=== PATIENT | male | born 1965 | race Caucasian/White ===

== ENCOUNTER 2018-01-26 20:45 | Emergency (ER) | payer OTHER, SELFPAY ==
[2018-01-26 20:46] VITALS: BP 119/76; PULSE 68; RESP 15; TEMP 36.7; BMI 25.7
--- NOTE | 2018-01-26 21:22 | ED.VISSUMM ---
- ER Visit Summary Date of Service: 01/26/18 Chief Complaint: Tick on face History of Present Illness: The patient is a 52 M who states he is out of the leon for the past 2 days. He noticed a tick along his right jawline in his aguilar tonight. His was unable to remove the entire tick. Physical Examination: Vital signs unremarkable. Head neck examination is significant for a small round area of erythema with central black noticed along the right jawline. Heart is regular rate and rhythm. Lung sounds are clear. Test Results: [] Emergency Department Course and Treatment: The area of erythema on the right jaw line is further evaluated. It does appear that there are 2 small pinchers noted in the central area. I believe the patient's was able to remove the body of the take but the pictures remained. Simple removal with forceps was not successful so 1/2 cc 1% lidocaine was injected to the area. Following this forceps were used to grab the visible pinchers an 18-gauge needle was used to core that area. This removed any remaining debris. On final repeat inspection I see no evidence of foreign body. Treatment Plan: [] Disposition: Discharge Impression: Tick removal This note was generated with [employer] dictation software. It may contain incorrect words, spelling, and punctuation that were not noted in review of the chart prior to signing ED Disposition - Plan for ED Patient: Chief Complaint: Foreign Body
--- NOTE | 2018-01-26 21:25 | ED.DEP ---
ED Disposition - Plan for ED Patient: Disposition: Home or Assisted Living Chief Complaint: Foreign Body Instructions: ED Bite Tick No Abx Tx
[2018-01-26 21:35] VITALS: RESP 18
--- NOTE | 2018-01-26 21:39 | NURSING ---
DOCTOR REMOVED WHAT WAS LEFT OF THE TICK. THE PT DID NOT NEED TO GO HOME ON ANTIBIOTICS, PT UNDERSTANDS DISCHARGE INFO.
== END 2018-01-26 21:40 | disposition home or self-care (01) ==
PROVIDERS: Emergency Provider Emergency Medicine
DX: S00.87XA Other superficial bite of other part of head, initial encounter (principal); W57.XXXA Bitten or stung by nonvenomous insect and other nonvenomous arthropods, initial encounter; Y93.9 Activity, unspecified; Y92.9 Unspecified place or not applicable
CPT/HCPCS: 10120; 99282

== ENCOUNTER → 2023-11-06 | Outpatient (CLI) | payer OTHER, SELFPAY ==
[2023-11-06 12:14] LABS: Absolute Lymphocyte Count 0.95 X10^3/uL (0.83-4.51); Absolute Neutrophil Count 3.1 X10^3/uL (2.0-7.7); Basophil# 0.06 X10^3/uL; Basophil% 1.3 % (0-1); Eosinophil# 0.19 X10^3/uL; Eosinophils% 4.1 % (0-5); Hematocrit 47.7 % (40-54); Hemoglobin 15.4 g/dL (13.0-16.5); Lymphocyte # 0.95 X10^3/ul (0.83-4.51); Lymphocyte % 20.6 % (19-41); Mean Corp Hgb Conc 32.3 g/dL (32-36); Mean Corpuscular Hgb 29.2 pg (27.0-32.0); Mean Corpuscular Volume 90.3 fL (80-94); Mean Platelet Vol. 10.7 fl (6.2-12.0); Monocyte% 6.5 % (0-10); NRBC Flagged by Analyzer 0 % (0-5); Neutrophil # 3.11 X10^3/uL (2.7-7.7); Neutrophil % 67.3 % (47-70); Platelet Count 203 K/mm3 (150-450); RBC Distribution Width CV 12.5 % (11.6-14.6); RBC Distribution Width SD 41.2 fl (35.1-43.9); Red Blood Count 5.28 M/mm3 (4.6-6.2); White Blood Count 4.6 K/mm3 (4.4-11.0)
[2023-11-06 13:01] LABS: AST(SGOT) 18 U/L (15-37); Alanine Aminotransfer ALT/SGPT 28 U/L (16-61); Albumin, Serum 3.8 g/dL (3.2-5.0); Alkaline Phosphatase 58 U/L (45-117); Anion Gap 3 (5-15); BUN 23 mg/dL (7-18); Calcium,Total 9.2 mg/dL (8.5-10.1); Chloride 106 mmol/L (98-107); Cholesterol 238 mg/dL (200); EST Glomerular Filtration Rate 82 mL/min (>60); Est Glom Filt Rate - Afr Amer 99 mL/min (>60); Globulin 3.7 g/dL (2.2-4.2); Glucose 108 mg/dL (74-106); High Density Lipoprotein 41 mg/dL; PSA,Total - Annual Screen 2.44 ng/mL (0.00-4.00); Potassium 4.3 mmol/L (3.5-5.1); Protein, Total 7.5 g/dL (6.4-8.2); Sodium Level 136 mmol/L (136-145); Triglycerides 296 mg/dL; Very Low Density Lipoprotein 59 mg/dL (5-40)
== END | disposition home or self-care (01) ==
LOC: BFHLAB 09:40
PROVIDERS: PCP Family Medicine; Visit Provider Family Medicine
DX: Z00.00 Encounter for general adult medical examination without abnormal findings (principal); Z12.5 Encounter for screening for malignant neoplasm of prostate
CPT/HCPCS: 36415; 80053; 80061; 84153; 85025; G0103

== ENCOUNTER 2023-12-26 06:54 | Day surgery (SDC) | payer SELFPAY, OTHER ==
[2023-12-26 07:09] VITALS: BP 132/91; PULSE 74; RESP 16; TEMP 36.4; O2SAT 99; BMI 26.5
[2023-12-26] MEDS: Lactated Ringers 1,000 ML 15 ML IV (07:22)
--- NOTE | 2023-12-26 08:00 | PCM.HP.STD ---
[facility] - General General Date of Admission: 12/26/23 Date of Service: 12/26/23 Chief Complaint: Screening colonoscopy HPI Narrative JUAN JOSE ROACH, is a 58 M who presents here today for screening colonoscopy. He does not have abdominal pain. He denied any cramping. He denied any chest pain shortness of breath. Overall he is in very good health. He has not had a colonoscopy in the past. His father had a history of polyps but no colon cancer. ON LICENSE OF [facility] Medical History (Updated 12/24/23 @ 13:28 by Ty Mccall) Heartburn Wears glasses Home Medications NK 01/26/18 [History Last Taken Unknown] Allergy/AdvReac Type Severity Reaction Status Date / Time Penicillins Allergy PT UNSURE Verified 12/26/23 07:09 OF REACTION Family History (Updated 12/05/23 @ 08:36 by Arpita Whitaker) Father Colon polyp Social History (Updated 12/05/23 @ 08:37 by Arpita Whitaker) household members: spouse current occupational status: employed Smoking Status: Never smoker details: Occasional alcohol substance use type: does not use aracelis/lutheran: [facility] ROS Review of Systems ROS Unobtainable: other Constitutional Constitutional: Denies fatigue, fever(s), poor appetite, weight gain or weight loss ENT HEENT: Denies mouth lesions Cardiovascular Cardiovascular: Denies abdominal bloating, abdominal edema or abdominal pain Respiratory/Chest Respiratory/Chest: Denies change in mental status, change in phlegm color, chest congestion or chest tightness Gastrointestinal Gastrointestinal: Denies belching, bloating, change in bowel habits, change in stool character, chewing difficulty, coffee ground emesis, constipation, cramping, diarrhea, dyspepsia, dysphagia, early satiety, excessive flatus, fecal incontinence, heartburn, hematemesis, hematochezia, hemorrhoids, loose stools, melena, nausea, odynophagia, rectal bleeding, tenesmus, vomiting or weight changes Genitourinary Genitourinary: Denies abdominal discomfort, burning urination or itching Musculoskeletal Musculoskeletal: Reports as per HPI; Denies muscle weakness or myalgias Integumentary Integumentary: Denies jaundice Neurologic Neurologic: Denies lack of coordination or weakness Psychiatric Psychiatric: Denies confusion, depression, memory loss, mood swings, paranoia or suicidal ideation Endocrine Endocrinology: Denies systems reviewed and no addt'l complaints, except as documented Hematologic/Lymphatic Hematologic/Lymphatic: Denies anemia, easy bleeding, easy bruising or lymphadenopathy Allergic/Immunologic Allergic/Immunologic: Denies systems reviewed and no addt'l complaints, except as documented Vital Signs Vital Signs Vital Signs: 12/26/23 07:09 12/26/23 07:09 Temperature 97.5 F L Temperature Source Temporal Pulse Rate 74 Respiratory Rate 16 Respiratory Pattern Normal Blood Pressure 132/91 H Blood Pressure Mean 104 Blood Pressure Source Monitor Blood Pressure Position Semi-Fowlers Blood Pressure Location Left Arm Pulse Ox 99 Oxygen Delivery Method Room Air Weight Weight: 201 lb Body Mass Index (BMI) 26.5 Physical Exam Const alert General Appearance: cooperative Orientation / Consciousness: oriented to person HEENT hearing grossly normal bilaterally Head and Scalp: normal to inspection Face and Sinus: face symmetric Nose: external nose normal Mouth: oral and palatal mucosa normal Eyes conjunctivae normal General Eye: normal appearance of both eyes Neck full ROM General: normal visual inspection Lymph Lymphatic: no lymphadenopathy noted Chest inspection of chest normal and palpation of chest normal Chest: symmetrical chest wall rise Resp normal respiratory effort Effort and Inspection: able to speak in complete sentences Cardio regular rate GI non-distended Percussion: normal to percussion Rectal Exam: deferred Neuro Speech: speech normal Gait (Neuro): normal gait Assessment & Plan Assessment/Plan (1) Encounter for screening for malignant neoplasm of colon: PLAN: He was explained alternatives, risk, benefits including not withstanding bleeding, infection, sepsis, perforation, need for emergent surgery . He will have an ASA of 2.
[2023-12-26 08:55] VITALS: BP 102/75; BP 132/91; PULSE 62; RESP 16; TEMP 36.2; O2SAT 97
--- NOTE | 2023-12-26 08:58 | OP.CCLET_ITS ---
12/26/2023 Kirill Brush [address] [place] [address] Re : Colonoscopy procedure for Ajay Bunn Dear Dr. Brush This procedure was performed on Tuesday, December 26, 2023. My impressions and recommendations are as follows: Impressions : - Preparation of the colon was fair. - Stool in the rectum, in the recto-sigmoid colon, in the sigmoid colon, in the descending colon and at the splenic flexure. - The examination was otherwise normal on direct and retroflexion views. - No specimens collected. Recommendations : - Discharge patient to home. - Resume previous diet. - Continue present medications. - Repeat colonoscopy because the bowel preparation was poor. My findings are described in the full procedure note, which is enclosed. If I can be of further assistance, please feel free to contact me at . Sincerely, Andrew Trejo, 12/26/2023 8:57:27 AM This report has been signed electronically.
--- NOTE | 2023-12-26 08:58 | OP.COLON_ITS ---
Patient Name: Ajay Bunn Procedure Date: 12/26/2023 8:28 AM Date of : 1965 Age: 58 Procedure: Colonoscopy Indications: Screening for colorectal malignant neoplasm Providers: Andrew Trejo DO Medicines: Monitored Anesthesia Care Patient Profile: This is a 58 year old male. Refer to note in patient chart for documentation of history and physical. Last Colonoscopy: none. The patient's first colonoscopy is today. Complications: No immediate complications. Procedure: Pre-Anesthesia Assessment: - Prior to the procedure, a History and Physical was performed, and patient medications and allergies were reviewed. The patient is competent. The risks and benefits of the procedure and the sedation options and risks were discussed with the patient. All questions were answered and informed consent was obtained. Patient identification and proposed procedure were verified by the physician in the pre-procedure area. Mental Status Examination: alert and oriented. Airway Examination: normal oropharyngeal airway and neck mobility. Respiratory Examination: clear to auscultation. CV Examination: normal. Prophylactic Antibiotics: The patient does not require prophylactic antibiotics. Prior Anticoagulants: The patient has taken no anticoagulant or antiplatelet agents. ASA Grade Assessment: II - A patient with mild systemic disease. After reviewing the risks and benefits, the patient was deemed in satisfactory condition to undergo the procedure. The anesthesia plan was to use monitored anesthesia care (MAC). Immediately prior to administration of medications, the patient was re-assessed for adequacy to receive sedatives. The heart rate, respiratory rate, oxygen saturations, blood pressure, adequacy of pulmonary ventilation, and response to care were monitored throughout the procedure. The physical status of the patient was re-assessed after the procedure. After I obtained informed consent, the scope was passed under direct vision. Throughout the procedure, the patient's blood pressure, pulse, and oxygen saturations were monitored continuously. The Colonoscope was introduced through the anus and advanced to the cecum, identified by appendiceal orifice and ileocecal valve. The colonoscopy was performed without difficulty. The patient tolerated the procedure well. The quality of the bowel preparation was fair. The terminal ileum, ileocecal valve, appendiceal orifice, and rectum were photographed. Scope In: 8:34:29 AM Scope Withdrawal Time 0 hours 8 minutes 14 seconds Scope Out: 8:50:26 AM Total Procedure Duration Time 0 hours 15 minutes 57 seconds Findings: The perianal and digital rectal examinations were normal. Stool was found in the rectum, in the recto-sigmoid colon, in the sigmoid colon, in the descending colon and at the splenic flexure, precluding visualization. The exam was otherwise without abnormality on direct and retroflexion views. Impression: - Preparation of the colon was fair. - Stool in the rectum, in the recto-sigmoid colon, in the sigmoid colon, in the descending colon and at the splenic flexure. - The examination was otherwise normal on direct and retroflexion views. - No specimens collected. Recommendation: - Discharge patient to home. - Resume previous diet. - Continue present medications. - Repeat colonoscopy because the bowel preparation was poor. Procedure Code(s): --- Professional --- G0121, Colorectal cancer screening; colonoscopy on individual not meeting criteria for high risk CPT copyright 2021 [employer]. All rights reserved. The codes documented in this report are preliminary and upon hair mixer review may be revised to meet current compliance requirements. Andrew Trejo DO 12/26/2023 8:57:27 AM This report has been signed electronically. Number of Addenda: 0 Note Initiated On: 12/26/2023 8:28 AM
[2023-12-26 09:00] VITALS: BP 101/72; BP 132/91; PULSE 61; RESP 16; O2SAT 97
[2023-12-26 09:05] VITALS: BP 100/68; BP 132/91; PULSE 58; RESP 16; O2SAT 97
[2023-12-26 09:13] VITALS: BP 102/72; BP 132/91; PULSE 57; RESP 18; TEMP 36.8; O2SAT 96
[2023-12-26 09:35] VITALS: BP 132/91
== END 2023-12-26 09:45 | disposition home or self-care (01) ==
LOC: EN 06:57 → AC 06:58
PROVIDERS: PCP Family Medicine; Referring Provider Family Medicine; Visit Provider Internal Medicine Gastroenterology
PROC: 0DJD8ZZ Inspection of Lower Intestinal Tract, Via Natural or Artificial Opening Endoscopic (ICD-10-PCS; CPT 45378; principal; 2023-12-26 07:55)
DX: Z12.11 Encounter for screening for malignant neoplasm of colon (principal); Z83.719 Family history of colon polyps, unspecified
CPT/HCPCS: 45378; J7120; J2405